=== PATIENT | female | born 2000 | race African-American/Black ===

== ENCOUNTER 2022-01-10 19:33 | Emergency (ER) | payer OTHER ==
[~2022-01-10] VITALS: Ht 154.9 cm; Wt 57.2 kg
[2022-01-10] MEDS ORDERED: DIPH25CA83 PO (20:46)
[2022-01-10 21:35] VITALS: BP 104/63
== END 2022-01-10 21:45 | disposition home or self-care (01) ==
LOC: ER 19:33
DX: T78.49XA Other allergy, initial encounter (principal); S70.362A Insect bite (nonvenomous), left thigh, initial encounter; S30.860A Insect bite (nonvenomous) of lower back and pelvis, initial encounter; W57.XXXA Bitten or stung by nonvenomous insect and other nonvenomous arthropods, initial encounter; Y93.89 Activity, other specified; Y92.89 Other specified places as the place of occurrence of the external cause
CPT/HCPCS: 99282